=== PATIENT | female | born 1995 | race American Indian/Alaskan Native ===

== ENCOUNTER 2018-10-12 18:19 | Emergency (ER) | payer OTHER ==
[2018-10-12] MEDS ORDERED: ASPIRIN PO ONE (18:30)
--- NOTE | 2018-10-12 18:54 | Emergency Department Report ---
ED General Adult HPI - General Chief complaint: Chest Pain Stated complaint: CHEST TIGHNESS/DA Time Seen by Provider: 10/12/18 18:53 Source: patient, EMS Mode of arrival: Stretcher Limitations: No Limitations - History of Present Illness Initial comments: Patient is a 23-year-old female past medical history of prolonged QT syndrome who presents with chest pain. Patient states chest pain occurred earlier on today as a 6 out of 10 as an achy type of pain nothing makes it better and nothing makes it worse. Patient states that she also has some slight shortness of breath with it. Patient's chest pain does not radiate anywhere. Patient states that this is chest pain that she typically has. - Related Data Allergies Allergy/AdvReac Type Severity Reaction Status Date / Time No Known Allergies Allergy Unverified 10/12/18 18:25 ED Review of Systems ROS: Stated complaint: CHEST TIGHNESS/DA Other details as noted in HPI Constitutional: denies: chills, fever Eyes: denies: eye pain, eye discharge, vision change ENT: denies: ear pain, throat pain Respiratory: shortness of breath. denies: cough, wheezing Cardiovascular: chest pain. denies: palpitations Endocrine: no symptoms reported Gastrointestinal: denies: abdominal pain, nausea, diarrhea Genitourinary: denies: urgency, dysuria, discharge Musculoskeletal: denies: back pain, joint swelling, arthralgia Skin: denies: rash, lesions Neurological: denies: headache, weakness, paresthesias Psychiatric: denies: anxiety, depression Hematological/Lymphatic: denies: easy bleeding, easy bruising ED Past Medical Hx - Past Medical History Additional medical history: Pacemaker/def. Prolong QT - Surgical History Additional Surgical History: pacemaker - Social History Smoking Status: Never Smoker Substance Use Type: None ED Physical Exam - General Limitations: No Limitations General appearance: alert, in no apparent distress - Head Head exam: Present: atraumatic, normocephalic - Eye Eye exam: Present: normal appearance - ENT ENT exam: Present: mucous membranes moist - Neck Neck exam: Present: normal inspection - Respiratory Respiratory exam: Present: normal lung sounds bilaterally. Absent: respiratory distress - Cardiovascular Cardiovascular Exam: Present: regular rate, normal rhythm. Absent: systolic murmur, diastolic murmur, rubs, gallop - GI/Abdominal GI/Abdominal exam: Present: soft, normal bowel sounds - Extremities Exam Extremities exam: Present: normal inspection - Back Exam Back exam: Present: normal inspection - Neurological Exam Neurological exam: Present: alert, oriented X3 - Psychiatric Psychiatric exam: Present: normal affect, normal mood - Skin Skin exam: Present: warm, dry, intact, normal color. Absent: rash ED Course Vital Signs 10/12/18 10/12/18 10/12/18 18:24 18:26 18:30 Temperature 99.2 F Pulse Rate 84 Respiratory 16 Rate Blood Pressure 109/66 109/66 109/66 O2 Sat by Pulse 98 98 83 L Oximetry 10/12/18 10/12/18 10/12/18 18:46 18:57 19:00 Temperature Pulse Rate 75 68 Respiratory 25 H 15 17 Rate Blood Pressure 109/66 106/65 O2 Sat by Pulse 98 97 99 Oximetry 10/12/18 10/12/18 10/12/18 19:30 19:34 19:45 Temperature Pulse Rate 86 77 Respiratory 16 28 H Rate Blood Pressure 130/77 114/64 O2 Sat by Pulse 97 Oximetry 10/12/18 10/12/18 10/12/18 20:00 20:16 20:30 Temperature Pulse Rate 69 70 62 Respiratory 24 21 13 Rate Blood Pressure 114/64 110/65 110/66 O2 Sat by Pulse 98 98 Oximetry 10/12/18 10/12/18 10/12/18 20:45 21:00 21:15 Temperature Pulse Rate 61 60 64 Respiratory 23 19 17 Rate Blood Pressure 112/77 112/77 110/65 O2 Sat by Pulse 98 99 Oximetry 10/12/18 10/12/18 10/12/18 21:30 21:45 22:00 Temperature Pulse Rate 66 59 L 68 Respiratory 15 20 23 Rate Blood Pressure 110/66 97/56 99/63 O2 Sat by Pulse 98 98 98 Oximetry 10/12/18 22:15 Temperature Pulse Rate 53 L Respiratory 22 Rate Blood Pressure 96/60 O2 Sat by Pulse 99 Oximetry ED Medical Decision Making - Lab Data Result diagrams: 10/12/18 18:42 10/12/18 18:42 Lab Results 10/12/18 10/12/18 10/12/18 Range/Units 18:42 18:42 21:54 WBC 9.0 (4.5-11.0) K/mm3 RBC 6.28 H (3.65-5.03) M/mm3 Hgb 12.8 (10.1-14.3) gm/dl Hct 41.4 (30.3-42.9) % MCV 66 L (79-97) fl MCH 20 L (28-32) pg MCHC 31 (30-34) % RDW 18.6 H (13.2-15.2) % Plt Count 338 (140-440) K/mm3 Lymph % (Auto) 13.8 (13.4-35.0) % Sebastian % (Auto) 5.4 (0.0-7.3) % Eos % (Auto) 1.2 (0.0-4.3) % Baso % (Auto) 0.4 (0.0-1.8) % Lymph # 1.2 (1.2-5.4) K/mm3 Sebastian # 0.5 (0.0-0.8) K/mm3 Eos # 0.1 (0.0-0.4) K/mm3 Baso # 0.0 (0.0-0.1) K/mm3 Seg Neutrophils % 79.2 H (40.0-70.0) % Seg Neutrophils # 7.1 (1.8-7.7) K/mm3 Sodium 137 (137-145) mmol/L Potassium 4.0 (3.6-5.0) mmol/L Chloride 103.0 (98-107) mmol/L Carbon Dioxide 21 L (22-30) mmol/L Anion Gap 17 mmol/L BUN 11 (7-17) mg/dL Creatinine 0.5 L (0.7-1.2) mg/dL Estimated GFR > 60 ml/min BUN/Creatinine Ratio 22 % Glucose 106 H (65-100) mg/dL Calcium 9.4 (8.4-10.2) mg/dL Troponin T < 0.010 < 0.010 (0.00-0.029) ng/mL - EKG Data -: EKG Interpreted by Me - EKG Data 10/12/18 22:27 First EKG shows sinus rhythm prolonged QT no ST segment elevation T-wave inversion Second EKG shows sinus rhythm with prolonged QT interval no ST segment elevation or T-wave depression. - Radiology Data Radiology results: report reviewed, image reviewed Chest x-ray: Shows no acute cardiopulmonary disease - Medical Decision Making Chief medical diagnosis: pulled chest wall muscle Differential medical diagnosis: Non-STEMI, pneumonia I'll get EKG, chest x-ray, CBC, BMP, IV pain medicine Patient's diagnostic workup was unremarkable EKG chest shows prolonged QT however she has a defibrilator and a pacemaker. Discussed plan with patient. Patient agrees with plan additional verbal discharge instructions were given. Critical care attestation.: If time is entered above; I have spent that time in minutes in the direct care of this critically ill patient, excluding procedure time. ED Disposition Clinical Impression: Chest pain Qualifiers: Chest pain type: unspecified Qualified Code(s): R07.9 - Chest pain, unspecified Disposition: DC-01 TO HOME OR SELFCARE Is pt being admited?: No Does the pt Need Aspirin: No Condition: Stable Instructions: Chest Pain (ED) Referrals: KILEY LOMAS MD [Primary Care Provider] - 3-5 Days
[2018-10-12] MEDS ORDERED: MORPHINE IV ONE (18:57)
[2018-10-12 19:09] LABS: BUN/Creatinine Ratio 22; Blood Urea Nitrogen 11 mg/dL (7-17); Calcium 9.4 mg/dL (8.4-10.2); Hemolysis Index 5
[2018-10-12 19:11] LABS: Basophils % (Auto) 0.4 % (0.0-1.8); Eosinophils # (Auto) 0.1 K/mm3 (0.0-0.4); Eosinophils % (Auto) 1.2 % (0.0-4.3); Hematocrit 41.4 % (30.3-42.9); Hemoglobin 12.8 gm/dl (10.1-14.3); Lymphocytes # (Auto) 1.2 K/mm3 (1.2-5.4); Lymphocytes % (Auto) 13.8 % (13.4-35.0); Mean Corpuscular HGB Conc 31 % (30-34); Monocytes # (Auto) 0.5 K/mm3 (0.0-0.8); Monocytes % (Auto) 5.4 % (0.0-7.3); Platelet Count 338 K/mm3 (140-440); Red Blood Count 6.28 M/mm3 (3.65-5.03); Red Cell Distribution Width 18.6 % (13.2-15.2)
[2018-10-12 19:12] LABS: Mean Corpuscular Volume 66 fl (79-97)
--- NOTE | 2018-10-12 20:27 | XRay Report ---
FINAL REPORT PROCEDURE: XR CHEST 1V AP TECHNIQUE: Chest radiograph anteroposterior view. CPT 59772 HISTORY: chest pain COMPARISON: No prior studies are available for comparison. FINDINGS: Heart: Normal. Mediastinum/Vessels: Normal. Lungs/Pleural space: Normal. Bony thorax: No acute osseous abnormality. Life support devices: Two unipolar cardiac devices are noted on the left side of the chest and upper abdomen with air leads in place. IMPRESSION: No acute cardiopulmonary abnormality.
[2018-10-12 22:30] VITALS: BP 96/60
== END 2018-10-13 00:06 | disposition home or self-care (01) ==
LOC: ED 18:19
DX: R07.89 Other chest pain (principal); Z95.0 Presence of cardiac pacemaker
CPT/HCPCS: 36415; 71045; 80048; 84484; 85025; 93005; 93010; 96374; 99285; J2270